=== PATIENT | male | born 1940 | race Caucasian/White ===

== ENCOUNTER 2016-12-21 14:51 | Inpatient (IN) | payer MEDICARE, OTHER ==
[~2016-12-21] VITALS: Ht 175.3 cm; Wt 69.0 kg
[~2016-12-21 14:51] MED LIST: 1-ME1LIQ PO; ASPI81TA82 PO; CELE200C PO; COZA100T PO; FISH1000 PO; HYDR50TA15 PO; MOTR200T PO; PERC5TAB12 PO; TOPR100T15 PO
[2016-12-21 15:29] VITALS: BP 169/80; PULSE 56; RESP 20; TEMP 98.3; O2SAT 96
--- NOTE | 2016-12-21 15:29 | PD ---
HPI Chief Complaint: fall Time Seen by Provider: 15:24 Travel History International Travel<30 days: No Contact w/Intl Traveler<30days: No History of Present Illness HPI 76-year-old male with PMH of hypertension presents to the ED via EMS after mechanical fall. The patient states that he was leaving lunch with a friend, turn to hug her and lost his balance, falling onto his right hip and elbow. He denies hitting his head or loss of consciousness. On presentation he complains of 3/10 right hip pain, worse with attempted range of motion or ambulation. He denies numbness, tingling, weakness of the lower extremities. Denies previous injury to the left hip. He denies headache, dizziness, chest pain, shortness of breath, abdominal pain, nausea, vomiting. PFSH Past Medical History Cancer: Yes (PROSTATE TREATED WITH CRYO) Cardiovascular Problems: Yes Chemotherapy: No Diminished Hearing: No Endocrine: No Gastrointestinal Disorders: No Genitourinary: Yes Hypertension: Yes Immune Disorder: No Musculoskeletal: No Neurologic: Yes (TREMORS NOTED) Psychiatric: No Reproductive: No Respiratory: No Radiation Therapy: No Past Surgical History Abdominal Surgery: Yes (HERNIA X2) Other Surgery: Yes (COLON RESECTION ) Social History Alcohol Use: Yes (2 BEER A DAY) Tobacco Use: Yes (chew) Substance Use: No Allergies-Medications (Allergen,Severity, Reaction): Coded Allergies: No Known Allergies (Verified , 12/21/16) Reported Meds & Prescriptions Reported Meds & Active Scripts Active Reported Aspirin 81 (Aspirin) 81 Mg Tabdr 81 Mg PO DAILY Fish Oil (Avon-3 Fatty Acids) 1,000 Mg Cap 1,000 Mg PO DAILY Celebrex (Celecoxib) 200 Mg Cap 200 Mg PO DAILY Hydralazine (Hydralazine HCl) 50 Mg Tab 50 Mg PO BID Take with a meal Losartan (Losartan Potassium) 100 Mg Tab 100 Mg PO DAILY Metoprolol Tartrate 100 Mg Tab 100 Mg PO DAILY Review of Systems Except as stated in HPI: all other systems reviewed are Neg Physical Exam Narrative GENERAL: Well-nourished, well-developed white male, appearing younger than his stated age, in no acute distress. SKIN: Focused skin assessment warm/dry. HEAD: Normocephalic. EYES: No scleral icterus. No injection or drainage. NECK: Supple, trachea midline. No JVD or lymphadenopathy. CARDIOVASCULAR: Regular rate and rhythm without murmurs, gallops, or rubs. RESPIRATORY: Breath sounds clear and equal bilaterally. No accessory muscle use. GASTROINTESTINAL: Abdomen soft, non-tender, nondistended. Active bowel sounds. MUSCULOSKELETAL: No cyanosis, or edema. 2+ radial pulses bilaterally. No tenderness to palpation or limitations tomorrow him of the right elbow. FOCUSED RIGHT LOWER EXTREMITY EXAM: 2+ DP pulse. Right leg slightly externally rotated and 2-3 cm shorter than the left. Tender to palpation of the anterolateral aspect of the right hip. Patient is able to flex and extend the toes, sensation intact to light touch distally. NEUROLOGICAL: Awake and alert. Cranial nerves II through XII intact. Motor and sensory grossly within normal limits. Five out of 5 muscle strength in all muscle groups. Normal speech. BACK: Nontender without obvious deformity. No CVA tenderness. Data Data Last Documented VS Vital Signs Date Time Temp Pulse Resp B/P Pulse Ox O2 Delivery O2 Flow Rate FiO2 12/21/16 15:30 Room Air 12/21/16 15:29 98.3 56 20 169/80 96 Orders Hip, Uni(Ap&Lat) W Ap Pelvis (12/21/16 15:23) Complete Blood Count With Diff (12/21/16 15:55) Comprehensive Metabolic Panel (12/21/16 15:55) Urinalysis - C+S If Indicated (12/21/16 15:55) Urinary Catheter Insert/Apply (12/21/16 15:55) Coag Profile (12/21/16 15:55) Type And Screen (12/21/16 15:55) Chest, Single Ap (12/21/16 ) Electrocardiogram (12/21/16 15:55) ^ Insert Iv (12/21/16 15:55) NPO (12/21/16 16:04) Consult Orthopedic (12/21/16 ) Admit Order (Ed Use Only) (12/21/16 16:27) MDM Medical Decision Making Medical Screen Exam Complete: Yes Emergency Medical Condition: Yes Differential Diagnosis Contusion versus femoral neck fracture versus dislocation versus other Narrative Course 76-year-old male with PMH of hypertension presents to the ED via EMS after mechanical fall. The patient states that he was leaving lunch with a friend, turn to hug her and lost his balance, falling onto his right hip and elbow. He denies hitting his head or loss of consciousness. On presentation he complains of 3/10 right hip pain, worse with attempted range of motion or ambulation. Vitals reviewed. Physical exam reveals a white male, appearing her than his stated age, in no acute distress. Focused right lower extremity exam reveals a 2+ DP pulse. Right leg slightly externally rotated and 2-3 cm shorter than the left. Tender to palpation of the anterolateral aspect of the right hip. Patient is able to flex and extend the toes, sensation intact to light touch distally. X-rays reveal a femoral neck fracture. I discussed the results of the x-ray and need for surgical intervention with the patient. Patient was ordered nothing by mouth, CBC, CMP, UA, type and screen, CXR, EKG ordered. Spoke with Dr. Salazar who plans surgery tonight. Call placed to [facility]. Dr. Valdovinos spoke with Dr. Gamboa who agrees to accept the patient to the medical service. Please see ortho and medicine notes for disposition. Diagnosis Primary Impression: Fracture of femoral neck, right, closed Qualified Code: S72.001A - Closed fracture of neck of right femur, initial encounter Jovita Richey Dec 21, 2016 15:29
--- NOTE | 2016-12-21 15:56 | RADRPT ---
EXAM DATE/TIME: 12/21/2016 15:39 [facility] COMPARISON: No previous studies available for comparison. INDICATIONS : Right hip pain after fall. MEDICAL HISTORY : None. SURGICAL HISTORY : None. ENCOUNTER: Initial ACUITY: 1 day PAIN SCORE: 2/10 LOCATION: Right anterior hip. FINDINGS: Diffuse decreased bone density. The femoral and iliac artery calcifications are noted. There is a mil dly displaced fracture through the right subcapital femoral neck. Penile implant device noted. CONCLUSION: Right proximal femur fracture. Tom Colunga MD on December 21, 2016 at 15:54 Board Certified Radiologist. This report was verified electronically.
[2016-12-21] MEDS ORDERED: LOSA100T PO (16:00)
[2016-12-21] MEDS ORDERED: HYDR50TA15 PO (16:00)
[2016-12-21] MEDS ORDERED: FISH1000 PO (16:00)
[2016-12-21] MEDS ORDERED: METO100T PO (16:00)
[2016-12-21] MEDS ORDERED: CELE200C PO (16:00)
[2016-12-21] MEDS ORDERED: ASPI-110 PO (16:00)
--- NOTE | 2016-12-21 16:19 | RADRPT ---
EXAM DATE/TIME: 12/21/2016 16:08 [facility] COMPARISON: CHEST SINGLE AP, November 03, 2012, 21:52. INDICATIONS : Fell MEDICAL HISTORY : None. SURGICAL HISTORY : None. ENCOUNTER: Initial ACUITY: 1 day PAIN SCORE: 0/10 LOCATION: Bilateral chest FINDINGS: A single view of the chest demonstrates the lungs to be symmetrically aerated without evidence of mas s, infiltrate or effusion. The cardiomediastinal contours are unremarkable. Osseous structures are intact. CONCLUSION: No acute disease. Francisco Gonzalez MD on December 21, 2016 at 16:17 Board Certified Radiologist. This report was verified electronically.
[2016-12-21] MEDS ORDERED: ONDANSETRON HCL 4 MG/2 ML VIAL IVP PRN (16:30)
[2016-12-21] MEDS ORDERED: ACETAMINOPHEN 325 MG TAB PO PRN (16:30)
[2016-12-21] MEDS ORDERED: SODIUM CHLORIDE 0.9% FLUSH 10 ML FLUSH IV FLUSH PRN (16:30)
[2016-12-21] MEDS ORDERED: NALOXONE HCL 0.4 MG/ML AMP IV PRN (16:30)
[2016-12-21 16:40] LABS: AUTOMATED NEUTROPHIL # 4.9 TH/MM3 (1.8-7.7); BASOPHIL # 0.1 TH/MM3 (0-0.2); BASOPHIL % 0.9 % (0.0-2.0); EOSINOPHIL % 0.5 % (0.0-4.0); HEMATOCRIT 41.1 % (39.0-51.0); HEMO FLAGS DIFF FINAL; LYMPH % 29.3 % (9.0-44.0); LYMPHOCYTE # 2.3 TH/MM3 (1.0-4.8); MEAN CELL VOLUME 89.8 FL (80.0-100.0); MEAN CORPUSCULAR HEMOGLOBIN 30.8 PG (27.0-34.0); MEAN CORPUSCULAR HGB CONC 34.2 % (32.0-36.0); MONO % 7.2 % (0.0-8.0); NEUT % 62.1 % (16.0-70.0); PLATELET COUNT 227 TH/MM3 (150-450); RED BLOOD COUNT 4.57 MIL/MM3 (4.50-5.90); RED CELL DISTRIBUTION WIDTH 13.4 % (11.6-17.2); WHITE BLOOD COUNT 7.8 TH/MM3 (4.0-11.0)
[2016-12-21] MEDS ORDERED: AMLO10TA2 PO (16:40)
[2016-12-21 16:44] LABS: BLOOD, URINE NEG (NEG); GLUCOSE,URINE NEG (NEG); HYALINE CAST, URINE 2 /lpf (RARE); KETONE, URINE NEG (NEG); NITRITE,URINE NEG (NEG); PH, URINE 6.5 (5.0-8.5); SQUAMOUS EPITHELIAL CELL URINE <1 /hpf (0-5); URINE COLOR LIGHT-YELLOW (YELLW/STRAW)
[2016-12-21 16:46] LABS: COMMENT (UR) CATH-CULT NOT IND; CULTURE IF INDICATED CATH CULTURE NOT IND
[2016-12-21 16:49] LABS: APTT (PATIENT) 28.5 SEC (24.3-30.1); PROTHROMBIN TIME - PATIENT 10.8 SEC (9.8-11.6)
[2016-12-21 17:04] LABS: ALKALINE PHOSPHATASE 46 U/L (45-117); ALT (GPT) 26 U/L (12-78); ANION GAP 10 MEQ/L (5-15); AST (GOT) 36 U/L (15-37); BICARBONATE 22.9 MEQ/L (21.0-32.0); BLOOD UREA NITROGEN 8 MG/DL (7-18); CHLORIDE 94 MEQ/L (98-107); GLOMERULAR FILTRATION RATE 89 ML/MIN (>89); SODIUM (NA) 127 MEQ/L (136-145)
[2016-12-21 17:06] LABS: POTASSIUM 4.8 MEQ/L (3.5-5.1)
[2016-12-21] MEDS: cloNIDine HCL 0.1 MG TAB PO PRN (17:17)
[2016-12-21] MEDS: SODIUM CHLOR 0.9% 1000 ML INJ 1,000 ML IV SCH (17:19)
[2016-12-21 18:16] VITALS: BP 170/79; PULSE 61; RESP 20; O2SAT 98
[2016-12-21] MEDS: ENALAPRILAT 1.25 MG/ML VIAL IV PRN (18:54)
--- NOTE | 2016-12-21 19:00 | MH ---
cc: COLE DREW MD DATE OF ADMISSION 12/21/2016 DATE OF 1940 CHIEF COMPLAINT Fall with injury, right hip fracture. TRAVEL IN THE LAST 30 DAYS None. HISTORY OF THE PRESENT ILLNESS This is a pleasant 76-year-old white male who has been in his usual state of health up until today around lunch time. The patient states that he met a friend, a close friend of his 's and went to lunch with her at the [employer]. After finishing his lunch he turned to hug her, lost his balance and both he and the female fell to the ground. The patient was unable to get up and felt extreme pain in his right hip. He also had pain in his right elbow. He denies any syncopal episode, denies any trauma to his head or loss of consciousness. The patient was brought to the emergency room for further evaluation. Currently the patient states that he has not been sick in any kind of way over the past few weeks. He denies any cough. No fever. No shortness of breath. No chest pain. No nausea or vomiting, diarrhea or constipation. No headaches. No abdominal pain. The patient currently is resting on the stretcher. He is alert, oriented and a good historian. PAST MEDICAL HISTORY 1. Prostate cancer. 2. Cardiovascular disease. 3. Hypertension. 4. Neurologic tremors. 5. Abdominal hernia. PAST SURGICAL HISTORY 1. Colon resection. 2. Abdominal hernia x2. 3. Cryosurgery. ALLERGIES No known. MEDICATIONS Reviewed: 1. Aspirin. 2. Fish oil. 3. Celebrex. 4. Hydralazine. 5. Losartan. 6. Metoprolol. 7. The patient added amlodipine. SOCIAL HISTORY The patient is . Currently lives alone with his dog. Positive for chewing tobacco. Positive for alcohol intake usually two to three beers a day and sometimes more around football games. No illicit drugs. REVIEW OF SYSTEMS A 12-point review was done, positives are noted in the HPI which include pain in the right hip, pain in the right elbow, tobacco use, alcohol use. Hypertension. Other systems negative or unremarkable. The patient states that his bowels moved this a.m. and he is on a normal regimen of a daily a.m. PHYSICAL EXAMINATION VITAL SIGNS: Temperature 98.3, pulse 56, respiratory rate 20, blood pressure 169/80. Pulse oximetry 96% which is O2 saturation. Currently on room air. GENERAL: Thin, but well-nourished white male looks younger than his stated age. Resting in the bed. Alert and oriented, cooperative. HEENT: Atraumatic, normocephalic. Pupils equal, round, reactive to light and accommodation. Mucous membranes are pink and moist. He has no scleral icterus. No exudate. NECK: Supple. Trachea is midline. CARDIOVASCULAR: S1-S2. Regular rate and rhythm. Bradycardic, 56. Heart sounds S1-S2. No audible murmur, rub or gallop. LUNGS: Sounds essentially clear anteriorly and posteriorly with no wheezes, rhonchi or rales. ABDOMEN: Soft. Flat. Nontender. Nondistended. Active bowel sounds in all four quadrants. MUSCULOSKELETAL: He can move his upper extremities with purpose. He does have some guarding to the right elbow. I deferred any movement to the right hip or right lower leg. Left lower leg can overcome resistance. NEUROLOGIC: He is alert, oriented. Speech is clear. PSYCHIATRIC: Appropriate mood and affect. GENITOURINARY: Vu catheter inserted with clear, yellow urine being obtained in the Vu bag. LABORATORY DATA Diagnostic data, urine is light yellow, clear. PH is 6.5, specific gravity 1.004. Negative for protein, glucose, ketones, occult blood, nitrites, bilirubin, and leukocyte esterase. Urine bilinogen less than 2. No cath culture will be needed. WBC count 7.8, RBC 4.57, hemoglobin 14.1, hematocrit 41.1, platelet count 227. His differential is normal. PT/INR 1.0. Chemistry sodium 127, potassium 4.8, chloride 94, carbon dioxide 22.9, anion gap 10, BUN 8, creatinine 0.84, GFR 89, random glucose 105. Calcium 8.9. Bilirubin 1.0. AST 36, ALT 26a, alkaline phosphatase 46. Total protein 7.7. Albumin 3.9. IMAGING Imaging studies of the hip and pelvis, right proximal hip fracture. A chest x-ray no acute disease. ASSESSMENT/PLAN 1. Right total hip fracture status post fall. 2. Hypertension. 3. Tobacco use and dependence. 4. Ethyl alcohol use and dependence. 5. Hyponatremia. 6. Bradycardia. Our plan is to admit inpatient status. In the emergency room the patient had labs drawn, was placed n.p.o. Orthopedic consult was done for their expert opinion. The patient was given pain management meds and started on normal saline IV fluids for gentle hydration. The patient has also got Vasotec IV q.6h as needed for any elevation of his blood pressure. He has also got p.o. Catapres given to manage his blood pressure. His systolic was in the high 180s at one point during his time in the ER. Medications have been reconciled. The patient's bradycardia will be monitored. The patient is on beta blockers but denies any dizziness or any symptoms when standing or ambulating. The patient will be remained on bed rest. Diet currently is n.p.o. Dr. Salazar orthopedic surgeon has been consulted and according to my records his plan is to do a surgical repair tonight. His orthopedic postoperative care and pain management will be managed per ortho. The patient will maintain his IV fluids for the treatment of his sodium and through the surgical procedure. We will give Pepcid for peptic ulcer disease prophylaxis. Sequential compression devices for DVT prophylaxis since we are in the preop phase. We will follow. Dictated by: AUGUSTA Duran MD MAHESH Fernando/CHLOE /5:53 PM /6:20 PM
[2016-12-21 19:06] VITALS: BP 154/72; PULSE 58; RESP 20; O2SAT 98
[2016-12-21] MEDS: MORPHINE SULFATE 4 MG/ML INJ IV PUSH PRN ×2 (19:06→22:34)
[2016-12-21 20:25] VITALS: BP 176/76; PULSE 63; RESP 19; TEMP 96.8; O2SAT 96
[2016-12-21] MEDS: SODIUM CHLORIDE 0.9% FLUSH 10 ML FLUSH IV FLUSH SCH (20:40)
[2016-12-21] MEDS: FAMOTIDINE 20 MG TAB PO SCH (20:40)
[2016-12-21] MEDS: hydrALAZINE HCL 50 MG TAB PO SCH (20:40)
[2016-12-21] MEDS ORDERED: POVIDONE IODINE 5% (ANTISEPSIS KIT) 4 APPLICATIONS EACH NARE PRN (20:45)
[2016-12-21] MEDS ORDERED: METOPROLOL TARTRATE 25 MG TAB PO PRN (20:45)
[2016-12-21] MEDS ORDERED: LACTATED RINGER'S 1000 ML IV PRN (20:45)
[2016-12-21] MEDS ORDERED: SODIUM CHLORID 0.9% 500 ML IV PRN (20:45)
[2016-12-21] MEDS ORDERED: CHLORHEXIDINE GLUCONATE 2 % 1 PACK (2 CLOTHS) TOPICAL PRN (20:45)
[2016-12-22 00:01] VITALS: BP 135/61; PULSE 57; RESP 17; TEMP 96.1; O2SAT 98
[2016-12-22] MEDS: SODIUM CHLOR 0.9% 1000 ML INJ 1,000 ML IV SCH ×3 (02:30→22:36)
[2016-12-22 04:01] VITALS: BP 164/79; PULSE 59; RESP 17; TEMP 96.8; O2SAT 97
[2016-12-22] MEDS: MORPHINE SULFATE 4 MG/ML INJ IV PUSH PRN (05:41)
--- NOTE | 2016-12-22 07:10 | PD.ORT.PN ---
Subjective Subjective Remarks Fall when leaving local restaurant. Pain to right hip and was unable to ambulate. Previous weakness to lower extremity due to sodium levels. States he drinks 2-3 beers 3-4 times week. Objective Vitals Vital Signs Date Time Temp Pulse Resp B/P Pulse Ox O2 Delivery O2 Flow Rate FiO2 12/22/16 04:01 96.8 59 17 164/79 97 12/22/16 00:01 96.1 57 17 135/61 98 12/21/16 20:25 96.8 63 19 176/76 96 12/21/16 19:06 58 20 154/72 98 Room Air 12/21/16 18:16 61 20 170/79 98 Room Air 12/21/16 15:30 Room Air 12/21/16 15:29 98.3 56 20 169/80 96 I/O 12/21/16 12/21/16 12/21/16 12/22/16 12/22/16 12/22/16 07:00 15:00 23:00 07:00 15:00 23:00 Intake Total 0 ml 0 ml Output Total 2800 ml 300 ml Balance -2800 ml -300 ml Intake Oral 0 ml 0 ml Output Urine Total 2800 ml 300 ml # Bowel Movements 0 0 Result Diagram: 12/21/16 1600 12/21/16 1600 Other Results Laboratory Tests Test 12/21/16 16:00 Prothrombin Time 10.8 SEC (9.8-11.6) Prothromb Time International 1.0 RATIO Ratio Imaging Last 24 hours Impressions Hip and Pelvis X-Ray 12/21/16 1523 Signed Impressions: Service Date/Time: Wednesday, December 21, 2016 15:39 - CONCLUSION: Right proximal femur fracture. Tom Colunga MD Objective Remarks Bilateral upper extremities: Full range of motion neurovascularly intact Left lower extremity: Full range of motion and neurovascularly intact Right lower extremity: Pain to palpation and movement of hip. No pain with knee or ankle motion. Intact sensation distally with good capillary refills Assessment & Plan Assessment and Plan Right femoral neck fracture Nothing by mouth Bed rest Surgery today for right hip hemiarthroplasty with possible total hip arthroplasty by Dr. Pimentel Sign consents Surya Hernandez Jr. Dec 22, 2016 07:09
[2016-12-22 08:00] VITALS: BP 157/70; PULSE 55; RESP 18; TEMP 96.8; O2SAT 97
[2016-12-22 08:06] LABS: AUTOMATED NEUTROPHIL # 7.9 TH/MM3 (1.8-7.7); BASOPHIL % 0.5 % (0.0-2.0); EOSINOPHIL % 0.1 % (0.0-4.0); HEMATOCRIT 40.7 % (39.0-51.0); HEMO FLAGS DIFF FINAL; LYMPH % 15.9 % (9.0-44.0); LYMPHOCYTE # 1.6 TH/MM3 (1.0-4.8); MEAN CELL VOLUME 91.2 FL (80.0-100.0); MEAN CORPUSCULAR HEMOGLOBIN 31.4 PG (27.0-34.0); MEAN CORPUSCULAR HGB CONC 34.5 % (32.0-36.0); NEUT % 77.5 % (16.0-70.0); PLATELET COUNT 261 TH/MM3 (150-450); RED BLOOD COUNT 4.47 MIL/MM3 (4.50-5.90); WHITE BLOOD COUNT 10.2 TH/MM3 (4.0-11.0)
[2016-12-22 08:26] LABS: BICARBONATE 21.4 MEQ/L (21.0-32.0); POTASSIUM 3.9 MEQ/L (3.5-5.1)
[2016-12-22] MEDS: METOPROLOL TARTRATE 100 MG TAB PO SCH (08:33)
[2016-12-22] MEDS: hydrALAZINE HCL 50 MG TAB PO SCH ×2 (08:33→19:20)
[2016-12-22] MEDS: LOSARTAN 50 MG TAB PO SCH (08:33)
[2016-12-22] MEDS: SODIUM CHLORIDE 0.9% FLUSH 10 ML FLUSH IV FLUSH SCH ×2 (08:34→19:21)
[2016-12-22] MEDS: FAMOTIDINE 20 MG TAB PO SCH ×2 (08:36→19:20)
[2016-12-22] MEDS ORDERED: NON-FORMULARY DRUG (Omega-3 Fatty Acids (Fish Oil) 1,000 MG) PO SCH (09:00)
--- NOTE | 2016-12-22 10:43 | HHI.PR ---
Subjective Remarks Resting in bed Nothing by mouth Alert cooperative, mild anxiety (Maribeth Espinoza) Objective Objective Results - Vital Signs Date Time Temp Pulse Resp B/P Pulse Ox O2 Delivery O2 Flow Rate FiO2 12/22/16 08:00 96.8 55 18 157/70 97 12/22/16 04:01 96.8 59 17 164/79 97 12/22/16 00:01 96.1 57 17 135/61 98 12/21/16 20:25 96.8 63 19 176/76 96 12/21/16 19:06 58 20 154/72 98 Room Air 12/21/16 18:16 61 20 170/79 98 Room Air 12/21/16 15:30 Room Air 12/21/16 15:29 98.3 56 20 169/80 96 I/O 12/21/16 12/21/16 12/21/16 12/22/16 12/22/16 12/22/16 07:00 15:00 23:00 07:00 15:00 23:00 Intake Total 0 ml 0 ml Output Total 2800 ml 300 ml Balance -2800 ml -300 ml Intake Oral 0 ml 0 ml Output Urine Total 2800 ml 300 ml # Bowel Movements 0 0 (Maribeth Espinoza) Result Diagram: 12/22/16 0711 12/22/16 0711 ROS General: Weakness (lower extremities especially the right side), Other (10 point ROS done positives noted in history of present illness otherwise negative or unremarkable systems) GI: Other (nausea mild with pain meds) Neuro/MS: Other (right hip and leg pain, fracture, plan for surgical procedure today, hip replacement) (Maribeth Espinoza) Physical Exam Physical Exam PHYSICAL EXAMINATION GENERAL: This is a well-developed, well-nourished male who appears to be in no acute distress resting in the bed He is alert and awake HEAD: Normocephalic without any lesion or mass noted. Facial features appear symmetric. OROPHARYNGEAL: Oropharynx without erythema or edema. NECK: Supple. No nuchal rigidity or lymphadenopathy. Trachea midline without deviation. CARDIAC: Regular rhythm, regular rate, S1 and S2 are heard. LUNGS: Clear to auscultation bilaterally. ABDOMEN: Soft, nontender, no organomegaly or masses. Bowel sounds are heard in all four quadrants. No rebound. No guarding. EXTREMITIES: No edema. Pulses equal bilateral. New fracture right hip, mildly rotated right foot NEUROLOGICAL: Patient mood and affect appropriate. No focal deficit SKIN:Warm and moist Objective Remarks I'm getting my hip fixed today (Maribeth Espinoza) A/P Assessment and Plan 1. Right total hip fracture status post fall. 2. Hypertension. 3. Tobacco use and dependence. 4. Ethyl alcohol use and dependence. 5. Hyponatremia. 6. Bradycardia. Patient is currently nothing by mouth. Plan for hip replacement to be done today instead of just repair per ortho Postop care and pain management per Ortho Hypertension, medications medical management controlled Tobacco and alcohol dependence, will monitor any signs of increased anxiety or restlessness. Currently patient is alert oriented, no jitters noted Hyponatremia mild patient is receiving gentle hydration Vital signs reviewed, patient is afebrile, heart rate in the 50s, no dizziness asymptomatic, with his medications this seems to be his norm Will check labs in the morning, the [facility] hospitalist will monitor medical management PUD prophylaxis DVT prophylaxis Discussed With: Nurse, Family (patient), Other (, seen on her behalf) ( Maribeth Espinoza) Assessment and Plan patient seen and examined NPO awaiting surgery pain controlled add thiamine , folic acid, prn Ativan (has h/o alcohol consumption) monitor sodium, slowly improving labs in am discussed with patient discussed with Maribeth DERAS (Jayla Davies MD) Maribeth Espinoza Dec 22, 2016 10:43 Jayla Davies MD Dec 22, 2016 13:40
--- NOTE | 2016-12-22 11:45 | EKG ---
Date Performed: 12/21/2016 Time Performed: 16:11:26 PTAGE: 76 years EKG: Sinus rhythm POSSIBLE RIGHT VENTRICULAR CONDUCTION DELAY INFERIOR MYOCARDIAL INFARCTION ABNORMAL ECG PREVIOUS TRACING : 12/21/2016 16.09 DOCTOR: Awais Quintana Interpretating Date/Time 12/24/2016 07:40:42
[2016-12-22] MEDS: cloNIDine HCL 0.1 MG TAB PO PRN ×2 (11:52→18:29)
[2016-12-22 12:00] VITALS: BP 171/70; PULSE 63; RESP 18; TEMP 96.9; O2SAT 98
[2016-12-22] MEDS ORDERED: LORazepam 0.5 MG TAB PO PRN (13:00)
[2016-12-22] MEDS ORDERED: PROPOFOL 200 MG/20 ML AMP IV ONE (14:46)
[2016-12-22] MEDS ORDERED: ePHEDrine/NS 25 MG/5 ML SYR IV ONE (14:47)
[2016-12-22] MEDS ORDERED: NEOSTIGMINE 3 MG/3 ML SYR IV ONE (14:47)
[2016-12-22] MEDS ORDERED: ONDANSETRON HCL 4 MG/2 ML VIAL IV PUSH ONE (14:47)
[2016-12-22] MEDS: THIAMINE INJ 100 MG in SODIUM CHLORIDE 0.9% INJ 100 ML IV SCH (15:00)
[2016-12-22] MEDS ORDERED: GENTAMICIN SULFATE 80 MG/2 ML VIAL ONE (15:10)
[2016-12-22] MEDS ORDERED: VANCOMYCIN HCL 1000 MG VIAL ONE ×2 (15:10→16:23)
--- NOTE | 2016-12-22 15:40 | PD.OP ---
cc: Jacek Chester MD Operative Report Date of Surgery: Dec 22, 2016 Preoperative Diagnosis: Displaced right femoral neck fracture Postoperative Diagnosis: Procedure: Right hip hemiarthroplasty Anesthesia: Gen. Surgeon: Jacek Chester Cover Maker(s): Dmitry Radford PA-C The surgical procedure was assisted by my physician education assistant. My P.A. presence was necessary throughout this case for the manipulation and positioning of the surgical extremity. My P.A. was assisting me throughout the duration of this procedure. The skill set of a physician education assistant was medically necessary to complete this procedure. During the surgical case the surgical garment inspector was working at the back table and the physician education assistant was directly assisting me. Operation and Findings: PLAN OF ACTIVITY Weight bear as tolerated. IMPLANTS USED DePuy Corail size [14] stem with size [52] bipolar head and [+1] neck. DRAIN: 7 mm James-Carter drain DETAILS OF PROCEDURE This patient was brought into the operating room and placed on the OR table. The patient was given anesthesia. The patient received IV antibiotics. The patient was then placed in lateral decubitus position. The hip and leg were prepped with alcohol, followed by Hibiclens and draped in a usual sterile fashion. Clean air was used for this procedure. Time out procedure was performed. The procedure began with a 5 inch incision over the posterolateral hip. The subcutaneous tissue was dissected with the Bovie. The iliotibial band were split in line with fibers. The Charnley retractor was placed. The piriformis and external rotators were released from the femur and tagged with a #1 Vicryl suture. The capsule is now incised and tagged with #1 Vicryl. The femoral neck fracture was now visualized. A corkscrew was now used to remove the femoral head. The femoral head was sized and measured. Soft tissue was now protected. The hip skid was placed underneath the femoral neck. An oscillating saw was used to make a femoral neck cut. At this point attention was turned to preparation of the proximal femur. A box osteotome was used to remove the lateral cortex of the femoral neck. The T- handle reamer was used to open the femoral canal. Next, the canal was broached. A lateralizing reamer was used to help lateralize the prosthesis. At this point a trial head and neck were placed. The hip was reduced. The patient was found to have excellent stability with good range of motion. Trial components were removed. Soft tissue and bone were thoroughly irrigated. A Corail stem was now opened. The stem was now impacted into the proximal femur. Care was taken to keep appropriate anteversion. The head and neck were now impacted onto the stem. The hip was again reduced. The hip was found to have good range of motion and good stability. Leg lengths were clinically equal. The wound was thoroughly irrigated. The capsule, piriformis and iliotibial band were closed with #1 Vicryl. Subcutaneous tissue was closed with 3-0 Vicryl. The skin was closed with britta. A sterile dressing was applied with Primapore. The patient was placed into a knee immobilizer. The patient was awakened and transferred to the recovery room in stable condition. Needle and sponge counts were correct. Jacek Chester MD Dec 22, 2016 15:40
[2016-12-22] MEDS ORDERED: ERGOCALCIFEROL (VIT D2) 50,000 UNIT CAP PO ONE (15:45)
[2016-12-22] MEDS ORDERED: MORPHINE SULFATE 4 MG/ML INJ IV PUSH PRN (15:45)
[2016-12-22] MEDS ORDERED: Post-op Orders (for Pharmacy) MISC XX ONE (15:45)
[2016-12-22] MEDS ORDERED: ACETAMINOPHEN/HYDROcodone 325 MG/7.5 MG TAB PO PRN (15:45)
[2016-12-22] MEDS ORDERED: SODIUM CHLORIDE 0.9% FLUSH 5 ML FLUSH IVF PRN (15:45)
--- NOTE | 2016-12-22 16:55 | MB ---
cc: JACEK KWONG DATE OF CONSULTATION: 12/22/2016 REASON FOR CONSULTATION: Right femoral neck fracture. CONSULTING PHYSICIAN: Dr. Gamboa. HISTORY OF PRESENT ILLNESS: Farhat is a 76 year-old male who had a fall. He met with a friend at the [employer] for lunch. As he was finishing lunch he lost his balance and fell. Both he and his friend fell to the ground. He was unable to get up because of right hip pain. He denies any dizziness, syncope or loss of consciousness. He denies hitting his head. He presented emergency room x-rays revealed a displaced right femoral neck fracture. He is currently awake and alert on the orthopedic floor. He does drink alcohol several days per week. He has history of hyponatremia. Pain is worse with movement is improved with rest. PAST MEDICAL HISTORY/ILLNESSES Prostate cancer. Cardiovascular disease Hypertension PAST SURGICAL HISTORY: Colon resection Abdominal hernia. Cryosurgery. ALLERGIES NONE. MEDICATIONS 1. Aspirin. 2. Fish oil 3. Celebrex 4. Hydralazine 5. Losartan 6. Metoprolol 7. Amlodipine. SOCIAL HISTORY The patient is a . Lives at home with his dog. He does use chewing tobacco. He drinks two to three beers per day most days. He denies drug use. FAMILY HISTORY Noncontributory. REVIEW OF SYSTEMS The patient denies headache, visual changes, neck pain, chest pain, shortness of breath, abdominal pain, nausea or recent weight loss or numbness amp extremities complains of right hip pain. Pain is worse with movement. PHYSICAL EXAMINATION IN GENERAL: The patient is a thin 76-year male in no acute distress. He is awake and alert. He is alert and x3. VITAL SIGNS: Temperature 96.9, pulse 63, respirations 18, blood pressure 171/70, O2 sat 90% on room air. HEAD, EYES, EARS, NOSE, AND THROAT: Head: The patient is normocephalic. Pupils are equal. NECK: Soft, nontender. Trachea is midline. ABDOMEN: Soft, nontender, nondistended. EXTREMITIES: The examination of right and left upper extremities reveals no significant pain with shoulder, elbow or wrist motion. He has intact sensation in all fingers. Cap refill fingers. Radial pulses are palpable. Sensation is intact in all fingers. Examination of left leg reveals no pain with hip, knee or ankle motion. Skin is intact. Dorsalis pedis pulses palpable. Sensation is intact. Examination of right leg reveals pain with any hip motion he has no tenderness around his knee, tibia or ankle. Skin is intact. Dorsalis pedis pulses palpable. Sensation is intact. X-RAYS X-rays of right hip were reviewed x-rays reveal a displaced right femoral neck fracture. IMPRESSION 1. Coronary artery disease 2. Hypertension 3. Possible osteoporosis 4. Displaced right femoral neck fracture. PLAN The option discussed with the patient discussed both the right hip hemiarthroplasty and right total hip arthroplasty. I explained the risks, benefits of each. The risk of the dislocation are significantly higher with total hip arthroplasty. The patient is not an extremely active person. At this point I would recommend the right hip hemiarthroplasty. Risks of surgery including bleeding, infection, injury to his blood vessels, hip dislocation length discrepancy, fracture femur as well as medical complications including blood clot, stroke, heart attack and were discussed. All questions were answered. I will plan on surgery today. A mid-level provider in my office (nurse practitioner or physician glass ribbon machine operator assistant) may see this patient on follow-up visits and continue to implement the objectives of this plan including: Starting or adjusting medications, injections , cast application, orthotics, brace application, physical therapy, radiological studies (including x-ray, MRI, CT, ultrasound, bone scan), vascular studies, neurologic studies, specialist consultation, and proceeding with surgical management, as appropriate. Jacek MD CAITLYN Perea/aramis /3:39 PM /4:48 PM NIXON
[2016-12-22] MEDS ORDERED: DO NOT ADM ANY ANTICOAGULANT DRUGS PRN (17:13)
[2016-12-22] MEDS ORDERED: fentaNYL CITRATE 250 MCG/5 ML AMP ONE (17:24)
[2016-12-22] MEDS ORDERED: ceFAZolin 2 GM PREMIX 50 ML IV SCH (17:30)
[2016-12-22] MEDS ORDERED: *ENALAPRILAT 1.25 MG/ML VIAL PERIprocedural Use ONLY ONE ×2 (17:32→18:04)
--- NOTE | 2016-12-22 19:18 | RADRPT ---
EXAM DATE/TIME: 12/22/2016 18:25 [place] COMPARISON: No previous studies available for comparison. INDICATIONS : Post op right hip. MEDICAL HISTORY : None. SURGICAL HISTORY : None. ENCOUNTER: Initial ACUITY: 1 day PAIN SCORE: Non-responsive. LOCATION: Right hip. FINDINGS: A single AP view of the pelvis was obtained as well as crosstable lateral view of the right hip. This demonstrates the patient is status post right hip arthroplasty. The femoral and acetabular component are intact and in normal alignment. There is an adjacent surgical drain. There is soft tissue swelli ng and postsurgical changes with overlying surgical skin britta. A penile prosthesis is noted. CONCLUSION: That is post right hip arthroplasty. Surya Rangel MD on December 22, 2016 at 19:15 Board Certified Radiologist. This report was verified electronically.
[2016-12-22] MEDS: ceFAZolin 2 GM PREMIX 50 ML IV SCH (19:21)
[2016-12-22] MEDS ORDERED: ceFAZolin 1,000 MG/NS 100 ML IV SCH ×2 (20:00)
[2016-12-22 20:01] VITALS: BP 180/78; PULSE 52; RESP 20; TEMP 96; O2SAT 98
[2016-12-22] MEDS ORDERED: SODIUM CHLORIDE 0.9% FLUSH 5 ML FLUSH IVF SCH (21:00)
[2016-12-22 23:03] VITALS: BP 123/58; PULSE 51; RESP 19; TEMP 96; O2SAT 96
[2016-12-23] VITALS (8 sets, daily range): BP systolic 143–188; BP diastolic 68–84; PULSE 50–67; RESP 16–19; TEMP 96–99.4; O2SAT 95–97
[2016-12-23] MEDS: ceFAZolin 2 GM PREMIX 50 ML IV SCH ×2 (01:41→09:35)
--- NOTE | 2016-12-23 06:55 | PD.ORT.PN ---
Subjective Subjective Remarks POD 1 s/p right hip bipolar hemiarthroplasty doing well. pain controlled. confused. Objective Vitals Vital Signs Date Time Temp Pulse Resp B/P Pulse Ox O2 Delivery O2 Flow Rate FiO2 12/23/16 04:01 96.2 50 19 143/68 95 12/22/16 23:03 96.0 51 19 123/58 96 12/22/16 20:01 96.0 52 20 180/78 98 12/22/16 18:30 52 12 164/80 97 Nasal Cannula 2 12/22/16 18:15 53 12 171/83 98 Nasal Cannula 2 12/22/16 18:00 54 12 165/83 97 Nasal Cannula 2 12/22/16 17:45 57 12 173/88 97 Nasal Cannula 2 12/22/16 17:30 58 12 186/90 97 Nasal Cannula 2 12/22/16 17:16 98.3 91 16 170/77 98 Nasal Cannula 2 12/22/16 12:00 96.9 63 18 171/70 98 12/22/16 08:00 96.8 55 18 157/70 97 I/O 12/22/16 12/22/16 12/22/16 12/23/16 12/23/16 12/23/16 07:00 15:00 23:00 07:00 15:00 23:00 Intake Total 0 ml 1916 ml 1186 ml Output Total 300 ml 300 ml 530 ml 80 ml Balance -300 ml 1616 ml 656 ml -80 ml Intake Oral 0 ml 120 ml IV Total 1916 ml 266 ml Other 800 ml Output Urine Total 300 ml 300 ml 350 ml Drainage Total 30 ml 80 ml Estimated Blood Loss 150 ml # Bowel Movements 0 0 0 Result Diagram: 12/22/16 0711 12/22/16 0711 Imaging Last 24 hours Impressions Hip and Pelvis X-Ray 12/21/16 1523 Signed Impressions: Service Date/Time: Wednesday, December 21, 2016 15:39 - CONCLUSION: Right proximal femur fracture. Tom Colunga MD Objective Remarks RLE: dressings clean and dry.intact. +drain. +knee brace. NVI Assessment & Plan Assessment and Plan 1) Right femoral neck fracture s/p hemiarthroplasty - POD 1 -WBAT -posterior hip precautions -maintain knee brace while in bed -DC drain POD 2 with dressing changes -CM for rehab placement -DVT prophylaxis with lovenox -plan for DC to rehab when arrangement made -f/u with [facility] or [facility] in 2 weeks Dmitry Radford Dec 23, 2016 06:55
[2016-12-23] MEDS ORDERED: ERGO1CAP30 PO (06:57)
[2016-12-23] MEDS ORDERED: CALCTAB19 PO (06:57)
[2016-12-23] MEDS ORDERED: XARE10TA PO (06:57)
[2016-12-23] MEDS ORDERED: HYDR-3288 PO (06:57)
[2016-12-23] MEDS ORDERED: VITA2000 PO (06:57)
[2016-12-23] MEDS ORDERED: WALKER/ADULT/FO1 MIS (06:57)
[2016-12-23 08:15] LABS: AUTOMATED NEUTROPHIL # 5.6 TH/MM3 (1.8-7.7); BASOPHIL % 0.1 % (0.0-2.0); HEMATOCRIT 31.9 % (39.0-51.0); HEMO FLAGS DIFF FINAL; LYMPH % 15.8 % (9.0-44.0); LYMPHOCYTE # 1.2 TH/MM3 (1.0-4.8); MEAN CELL VOLUME 90.2 FL (80.0-100.0); MEAN CORPUSCULAR HEMOGLOBIN 32.4 PG (27.0-34.0); MEAN CORPUSCULAR HGB CONC 35.9 % (32.0-36.0); MONO % 11.7 % (0.0-8.0); NEUT % 72.4 % (16.0-70.0); PLATELET COUNT 220 TH/MM3 (150-450); RED BLOOD COUNT 3.54 MIL/MM3 (4.50-5.90); RED CELL DISTRIBUTION WIDTH 13.4 % (11.6-17.2); WHITE BLOOD COUNT 7.7 TH/MM3 (4.0-11.0)
[2016-12-23 08:35] LABS: BICARBONATE 24.7 MEQ/L (21.0-32.0)
[2016-12-23] MEDS: SODIUM CHLOR 0.9% 1000 ML INJ 1,000 ML IV SCH ×2 (09:36→17:30)
[2016-12-23] MEDS: LOSARTAN 50 MG TAB PO SCH (09:40)
[2016-12-23] MEDS: FOLIC ACID 1 MG TAB PO SCH (09:40)
[2016-12-23] MEDS: CHOLECALCIFEROL (VIT D3) 5000 UNIT CAP PO SCH (09:41)
[2016-12-23] MEDS: SODIUM CHLORIDE 0.9% FLUSH 10 ML FLUSH IV FLUSH SCH ×2 (09:41→20:01)
[2016-12-23] MEDS: hydrALAZINE HCL 50 MG TAB PO SCH ×2 (09:41→20:00)
[2016-12-23] MEDS: METOPROLOL TARTRATE 100 MG TAB PO SCH (09:41)
[2016-12-23] MEDS: FAMOTIDINE 20 MG TAB PO SCH ×2 (09:41→20:00)
--- NOTE | 2016-12-23 11:21 | HHI.PR ---
Subjective Remarks Resting in bed, alert States he slept very well Status post day 1 to left hip replacement Talking on the phone to family Afebrile Objective Objective Results - Vital Signs Date Time Temp Pulse Resp B/P Pulse Ox O2 Delivery O2 Flow Rate FiO2 12/23/16 09:40 63 12/23/16 04:01 96.2 50 19 143/68 95 12/22/16 23:03 96.0 51 19 123/58 96 12/22/16 20:01 96.0 52 20 180/78 98 12/22/16 18:30 52 12 164/80 97 Nasal Cannula 2 12/22/16 18:15 53 12 171/83 98 Nasal Cannula 2 12/22/16 18:00 54 12 165/83 97 Nasal Cannula 2 12/22/16 17:45 57 12 173/88 97 Nasal Cannula 2 12/22/16 17:30 58 12 186/90 97 Nasal Cannula 2 12/22/16 17:16 98.3 91 16 170/77 98 Nasal Cannula 2 12/22/16 12:00 96.9 63 18 171/70 98 I/O 12/22/16 12/22/16 12/22/16 12/23/16 12/23/16 12/23/16 07:00 15:00 23:00 07:00 15:00 23:00 Intake Total 0 ml 1916 ml 1186 ml 120 ml Output Total 300 ml 300 ml 530 ml 280 ml Balance -300 ml 1616 ml 656 ml -160 ml Intake Oral 0 ml 120 ml 120 ml IV Total 1916 ml 266 ml Other 800 ml Output Urine Total 300 ml 300 ml 350 ml 200 ml Drainage Total 30 ml 80 ml Estimated Blood Loss 150 ml # Bowel Movements 0 0 0 0 Result Diagram: 12/23/16 0736 12/23/16 0736 ROS General: Weakness (generalized postop day 1 right hip replacement), Other (10 point ROS done positives noted, bowel regimen no BM yet, systems negative or unremarkable. Physical therapy started today) Neuro/MS: Other (mild anxiety, but glad surgery is completed) Skin: Other (pain management) Physical Exam Physical Exam PHYSICAL EXAMINATION GENERAL: This is a well-developed, well-nourished male who appears to be in no acute distress. He is alert and awake, postop day 1 right hip replacement HEAD: Normocephalic without any lesion or mass noted. Facial features appear symmetric. OROPHARYNGEAL: Oropharynx without erythema or edema. NECK: Supple. No nuchal rigidity or lymphadenopathy. Trachea midline without deviation. CARDIAC: Regular rhythm, regular rate, S1 and S2 are heard. Murmur soft no gallops or rubs. LUNGS: Clear to auscultation bilaterally. Eupneic respirations at rest ABDOMEN: Soft, nontender, no organomegaly or masses. Bowel sounds are heard in all four quadrants. No rebound. No guarding. EXTREMITIES: no edema. Pulses equal bilateral. NEUROLOGICAL: Patient mood and affect appropriate. No focal deficit SKIN:Warm and moist Objective Remarks I Slept really well last night A/P Assessment and Plan 1. Right total hip fracture status post fall. 2. Hypertension. 3. Tobacco use and dependence. 4. Ethyl alcohol use and dependence. 5. Hyponatremia. 6. Bradycardia. Status post right hip replacement, day 1 dressing is clean dry and intact, no drainage noted Postop care and pain management per Ortho Hypertension, medications medical management controlled Tobacco and alcohol dependence, will monitor any signs of increased anxiety or restlessness. No acute restlessness noted patient is alert and oriented, monitor for any needs Hyponatremia mild patient is receiving gentle hydration Vital signs reviewed, patient is afebrile, heart rate in the 50s, no dizziness asymptomatic, with his medications this seems to be his norm Labs reviewed no acute leukocytosis or blood loss noted .vitamin D level low . PO Vit. D . encourage by mouth fluids, mild hyponatremia, started on multivitamins, thiamine IV daily Bowel regimen, stool softeners today. Patient states usually has no problems with his bowels moving PUD prophylaxis DVT prophylaxis Discussed With: Nurse, Family (patient), Other (, seen on her behalf) Maribeth Espinoza Dec 23, 2016 11:21
[2016-12-23] MEDS ORDERED: CHOLECALCIFEROL (VIT D3) 1000 UNIT TAB PO SCH (11:30)
[2016-12-23] MEDS: MULTIVITAMIN TAB PO SCH (12:09)
[2016-12-23] MEDS: ENALAPRILAT 1.25 MG/ML VIAL IV PRN (13:28)
[2016-12-23] MEDS: cloNIDine HCL 0.1 MG TAB PO PRN (15:18)
[2016-12-23] MEDS: THIAMINE INJ 100 MG in SODIUM CHLORIDE 0.9% INJ 100 ML IV SCH (15:29)
[2016-12-23] MEDS ORDERED: ENOXAPARIN SODIUM 30 MG/0.3 ML SYRINGE SQ SCH (16:13)
[2016-12-23] MEDS: ACETAMINOPHEN/HYDROcodone 325 MG/7.5 MG TAB PO PRN (17:30)
[2016-12-24 00:02] VITALS: BP 155/60; PULSE 59; RESP 18; TEMP 99.4; O2SAT 94
[2016-12-24] MEDS: SODIUM CHLOR 0.9% 1000 ML INJ 1,000 ML IV SCH (01:55)
[2016-12-24 04:21] VITALS: BP 158/61; PULSE 78; RESP 17; TEMP 98.8; O2SAT 94
--- NOTE | 2016-12-24 06:56 | PD.ORT.PN ---
Subjective Subjective Remarks Resting comfortably with mild confusion Objective Vitals Vital Signs Date Time Temp Pulse Resp B/P Pulse Ox O2 Delivery O2 Flow Rate FiO2 12/24/16 04:21 98.8 78 17 158/61 94 12/24/16 00:02 99.4 59 18 155/60 94 12/23/16 19:52 99.4 63 16 169/76 96 12/23/16 18:38 21 12/23/16 18:17 67 180/84 12/23/16 16:00 97.0 65 16 185/74 97 12/23/16 15:15 62 180/74 12/23/16 12:00 97.0 64 16 188/79 97 12/23/16 09:40 63 12/23/16 08:00 96.0 55 16 175/72 95 I/O 12/23/16 12/23/16 12/23/16 12/24/16 12/24/16 12/24/16 07:00 15:00 23:00 07:00 15:00 23:00 Intake Total 120 ml 660 ml 240 ml 240 ml Output Total 280 ml 300 ml 100 ml 400 ml Balance -160 ml 360 ml 140 ml -160 ml Intake Oral 120 ml 600 ml 240 ml 240 ml IV Total 60 ml Output Urine Total 200 ml 300 ml 400 ml Drainage Total 80 ml 100 ml Bladder Scan Volume Amount 361 ml # Voids 1 0 # Bowel Movements 0 0 0 0 Result Diagram: 12/23/1636 12/23/16 0736 Imaging Last 24 hours Impressions Hip and Pelvis X-Ray 12/21/16 1523 Signed Impressions: Service Date/Time: Wednesday, December 21, 2016 15:39 - CONCLUSION: Right proximal femur fracture. Tom Colunga MD Objective Remarks RLE: dressings clean and dry.intact. +drain. +knee brace. NVI Assessment & Plan Assessment and Plan 1) Right femoral neck fracture s/p hemiarthroplasty - POD 2 -WBAT -posterior hip precautions -maintain knee brace while in bed -Daily dressing changes -CM for rehab placement -DVT prophylaxis with lovenox -plan for DC to rehab when arrangement made -f/u with [facility] or [facility] in 2 weeks Surya Hernandez Jr. Dec 24, 2016 06:56
[2016-12-24 08:00] VITALS: BP 149/66; PULSE 94; RESP 20; TEMP 99.1; O2SAT 94
[2016-12-24] MEDS: MULTIVITAMIN TAB PO SCH (08:46)
[2016-12-24] MEDS: FOLIC ACID 1 MG TAB PO SCH (08:46)
[2016-12-24] MEDS: LOSARTAN 50 MG TAB PO SCH (08:46)
[2016-12-24] MEDS: METOPROLOL TARTRATE 100 MG TAB PO SCH (08:46)
[2016-12-24] MEDS: FAMOTIDINE 20 MG TAB PO SCH (08:47)
[2016-12-24] MEDS: CHOLECALCIFEROL (VIT D3) 5000 UNIT CAP PO SCH (08:47)
[2016-12-24] MEDS: SODIUM CHLORIDE 0.9% FLUSH 10 ML FLUSH IV FLUSH SCH (08:47)
[2016-12-24] MEDS: hydrALAZINE HCL 50 MG TAB PO SCH (08:47)
[2016-12-24] MEDS: ACETAMINOPHEN/HYDROcodone 325 MG/7.5 MG TAB PO PRN (08:52)
--- NOTE | 2016-12-24 11:05 | HHI.PR ---
Subjective Subjective Remarks Minimal pain No chest pain No shortness of breath No fever Eating well Had a bowel movement Review of Systems Constitutional Constitutional Remarks 12 point review of systems completed, negative except as noted above Vitals/Results Intake & Output 12/23/16 12/23/16 12/24/16 15:00 23:00 07:00 Intake Total 660 ml 240 ml 240 ml Output Total 300 ml 100 ml 420 ml Balance 360 ml 140 ml -180 ml Intake Oral 600 ml 240 ml 240 ml IV Total 60 ml Output Urine Total 300 ml 400 ml Drainage Total 100 ml 20 ml Bladder Scan Volume Amount 361 ml # Voids 1 0 # Bowel Movements 0 0 0 Vital Signs Vital Signs Date Time Temp Pulse Resp B/P Pulse Ox O2 Delivery O2 Flow Rate FiO2 12/24/16 08:00 99.1 94 20 149/66 94 12/24/16 04:21 98.8 78 17 158/61 94 12/24/16 00:02 99.4 59 18 155/60 94 12/23/16 19:52 99.4 63 16 169/76 96 12/23/16 18:38 21 12/23/16 18:17 67 180/84 12/23/16 16:00 97.0 65 16 185/74 97 12/23/16 15:15 62 180/74 12/23/16 12:00 97.0 64 16 188/79 97 CBC/BMP: 12/23/16 0736 12/23/16 0736 Physical Exam General General Appearance: Well Developed, Well Nourished, No Acute Distress, Comfortable Eyes Eye Exam: Pupils Equal, Pupils Reactive Ears & Nose Ears & Nose Exam: Nasal Mucosa [place] Throat Throat Exam: Oral Mucosa [place] & Moist Neck Neck Exam: Neck Supple, Trachea Midline Pulmonary Resp Exam: Clear Bilaterally Cardiology CV Exam: Regular, Good Perfusion Gastrointestinal/Abdomen GI Exam: Soft, Non-Tender, Bowel Sounds Present, Non-Distended Musculoskeletal MS Remarks Right hip dressing dry and intact Integumentary Skin Exam: Warm, Dry Extremeties Extremities Exam: No Edema, Pedal Pulses Palpable Neurologic Neuro Exam: Alert, Awake, Oriented, Speech Clear, Paraprofessional Education Assistant Equal Psychiatric Psych Exam: Appropriate Responses VTE Prophylaxis VTE Prophylaxis Device: SCDs, TEDs VTE Prophylaxis Meds: Lovenox Assessment/Plan Problem List: (1) Fracture of femoral neck, right, closed (2) Tremor, essential (3) Hypertension (4) Impaired mobility and activities of daily living (5) Vitamin D deficiency (6) ETOH abuse Assessment/Plan Status post right hip hemiarthroplasty, 12/22 Postop care and pain management per Ortho Physical therapy Lovenox for DVT prophylax Hypertension, at times elevated Continue home medication When necessary meds have been ordered Tobacco and alcohol dependence, has been stable will monitor any signs of increased anxiety or restlessness Continue with thiamine Hyponatremia mild Stable Vitamin D deficiency Continue with by mouth vitamin D Case management for discharge planning, has been accepted [facility] are Lovenox for DVT prophylaxis Patient stable for discharge Discharge to [facility] today Follow up with orthopedic in 2 weeks Diet heart healthy Activity per orthopedic orders D/W RN D/W Dr. Aguayo D/W pt This patient was seen by myself and Dr. Aguayo, this note is written on his behalf. Problem Qualifiers (1) Fracture of femoral neck, right, closed: Qualified Code: S72.001A - Closed fracture of neck of right femur, initial encounter (2) Hypertension: Qualified Code: I10 - Essential hypertension Coral Lockwood Dec 24, 2016 11:05
--- NOTE | 2016-12-24 11:05 | HHI.DCPOC ---
Discharge Care Plan Diagnosis: (1) Fracture of femoral neck, right, closed Your Health Problems Are: Difficulty with ADL Goals to Promote Your Health * To prevent worsening of your condition and complications * To maintain your health at the optimal level Directions to Meet Your Goals Take your medications as prescribed Follow your dietary instruction Follow activity as directed Keep your appointments as scheduled Take your immunizations and boosters as scheduled If your symptoms worsen call your PCP, if no PCP go to Urgent Care Center or Emergency Room Smoking is Dangerous to Your Health. Avoid second hand smoke Call the 24-hour hour crisis hotline for domestic abuse at Coral Lockwood [facility] Dec 24, 2016 11:05
[2016-12-24 11:58] VITALS: BP 173/65; PULSE 79; RESP 20; TEMP 97.7; O2SAT 95
--- NOTE | 2016-12-24 15:11 | HHI.DS ---
Discharge Summary Admission Date Dec 21, 2016 at 16:28 Discharge Date: Dec 24, 2016 Admitting Diagnosis R Fem Neck Fx (1) Fracture of femoral neck, right, closed (2) Postoperative anemia due to acute blood loss (3) Tremor, essential (4) Hypertension (5) Vitamin D deficiency (6) ETOH abuse (7) Impaired mobility and activities of daily living (8) Hyponatremia Procedures Status post right hip hemiarthroplasty, 12/22 CBC/BMP: 12/23/16 0736 12/23/16 0736 Significant Findings Laboratory Tests Test 12/21/16 12/22/16 12/23/16 16:00 07:11 07:36 Sodium Level 127 MEQ/L 130 MEQ/L 133 MEQ/L (136-145) (136-145) (136-145) Chloride Level 94 MEQ/L 95 MEQ/L (98-107) (98-107) Red Blood Count 4.47 MIL/MM3 3.54 MIL/MM3 (4.50-5.90) (4.50-5.90) Neutrophils (%) (Auto) 77.5 % 72.4 % (16.0-70.0) (16.0-70.0) Neutrophils # (Auto) 7.9 TH/MM3 (1.8-7.7) Random Glucose 123 MG/DL 129 MG/DL (74-106) (74-106) Calcium Level 8.4 MG/DL 8.2 MG/DL (8.5-10.1) (8.5-10.1) 25-Hydroxy Vitamin D Total 27.3 ng/ML (30-100) Hemoglobin 11.5 GM/DL (13.0-17.0) Hematocrit 31.9 % (39.0-51.0) Monocytes (%) (Auto) 11.7 % (0.0-8.0) Estimat Glomerular Filtration 82 ML/MIN (>89) Rate Imaging Last Impressions Hip and Pelvis X-Ray 12/22/16 1534 Signed Impressions: Service Date/Time: Thursday, December 22, 2016 18:25 - CONCLUSION: That is post right hip arthroplasty. Surya Rangel MD Chest X-Ray 12/21/16 0000 Signed Impressions: Service Date/Time: Wednesday, December 21, 2016 16:08 - CONCLUSION: No acute disease. Francisco Gonzalez MD Hospital Course This is a pleasant 76-year-old white male who had been in his usual state of health up until today around lunch time. The patient stated that he met a a close friend of his 's and went to lunch with her at the [employer]. After finishing his lunch he turned to hug her, lost his balance and both he and the female fell to the ground. The patient was unable to get up and felt extreme pain in his right hip. He also had pain in his right elbow. He denied any syncopal episode, denies any trauma to his head or loss of consciousness. The patient was brought to the emergency room for further evaluation. Was evaluated in the ED, was found with a right femoral neck fracture. Patient was admitted for further evaluation for: (1) Fracture of femoral neck, right, closed (2) Tremor, essential (3) Hypertension (4) Impaired mobility and activities of daily living (5) Vitamin D deficiency (6) ETOH abuse (7) Hyponatremia During the course of the hospitalization, the following took place: Patient was admitted, orthopedic was consulted Pain management was provided Surgery was recommended by orthopedic Status post right hip hemiarthroplasty, 12/22 Postop orders instituted consisting of pain management, wound care, physical therapy, appropriate DVT prophylaxis Hypertension, at times blood pressure elevated Continued home medication When necessary meds were ordered Tobacco and alcohol dependence, remained stable monitored for signs of increased anxiety or restlessness Put on thiamine Was noted with Hyponatremia mild Hydrated Na improved IVF dc Vitamin D deficiency noted Started on by mouth vitamin D Case management consult for discharge planning, was accepted at [facility] Patient was stable for discharge Cleared by orthopedic surgeon Discharged to [facility] in stable condition Follow up with orthopedic in 2 weeks Diet heart healthy Activity per orthopedic orders Pt Condition on Discharge: Stable Discharge Disposition: Rehab Inpatient Discharge Instructions DIET: Follow Instructions for: Heart Healthy Diet Activities you can perform: Weight Bearing as Marcia Follow up Referrals: Orthopedics - 01/06/17 @ [facility] with Jacek Pimentel MD New Medications: Calcium Carbonate-Vitamin D (Calcium 600+D 200) 600-200 Mg-Unit Tab 1 TAB PO BID Nutritional Supplement #30 Ref 0 TAB Cholecalciferol (Vitamin D3) 2,000 Unit Cap 2000 UNITS PO DAILY Nutritional Supplement #56 Ref 0 CAP Ergocalciferol (Ergocalciferol) 50,000 Unit Cap 50344 UNITS PO Q7D Nutritional Supplement #56 CAP Hydrocodone-Acetaminophen (Junior) 7.5-325 mg Tab 1 TAB PO Q4H PRN PAIN #60 Ref 0 TAB Rivaroxaban (Xarelto) 10 Mg Tab 10 MG PO DAILY Blood Clot Prevention #21 Ref 0 TAB Walker/Adult/Folding (Walker/Adult/Folding) 1 Mis Mis 1 EA .ROUTE DIRECTED #1 Ref 0 EA Continued Medications: Amlodipine (Amlodipine) 10 Mg Tab 10 MG PO DAILY Blood Pressure Management Ref 0 TAB Hydralazine (Hydralazine) 50 Mg Tab 50 MG PO BID Take with a meal Blood Pressure Management Ref 0 TAB Losartan (Losartan) 100 Mg Tab 100 MG PO DAILY Blood Pressure Management Ref 0 TAB Metoprolol Tartrate (Metoprolol Tartrate) 100 Mg Tab 100 MG PO DAILY Ref 0 TAB Hunt-3 Fatty Acids (Fish Oil) 1,000 Mg Cap 1000 MG PO DAILY Discontinued Medications: Aspirin DR (Aspirin 81) 81 Mg Tabdr 81 MG PO DAILY Ref 0 TAB Celecoxib (Celebrex) 200 Mg Cap 200 MG PO DAILY Pain Management Ref 0 CAP Coral Lockwood Dec 24, 2016 15:11
[2017-01-05] MEDS ORDERED: OYST250T4 PO (09:21)
[2017-01-05] MEDS ORDERED: DRIS50002 PO (09:21)
[2017-01-05] MEDS ORDERED: AMLO5 PO (09:21)
[2017-01-05] MEDS ORDERED: TAMS5CAP PO (09:21)
[2017-01-05] MEDS ORDERED: FAMO20TA2 PO (09:21)
[2017-01-05] MEDS ORDERED: CLON.1 PO (09:21)
[2017-01-05] MEDS ORDERED: XARE10TA PO (09:21)
[2017-01-05] MEDS ORDERED: VITA2000 PO (09:21)
[2017-01-05] MEDS ORDERED: THERTAB15 PO (09:21)
[2017-01-05] MEDS ORDERED: VITA100T2 PO (09:21)
[2017-01-05] MEDS ORDERED: HYDR-3580 PO (09:43)
[2017-01-05] MEDS ORDERED: METO-338 PO (10:30)
[2017-01-05] MEDS ORDERED: COZA50TA PO (10:30)
== END 2016-12-24 12:44 | DRG 470 ==
LOC: NEPE 14:51 → NEDA 16:28 → N06B 20:26 → N06A 12-23 04:16
PROVIDERS: ADMIT Specialist; ATTEND Specialist
PROC: 3E0T3CZ (ICD-10-PCS; 2016-12-22)
PROC: 0SRR0JA Replacement of Right Hip Joint, Femoral Surface with Synthetic Substitute, Uncemented, Open Approach (ICD-10-PCS; principal; 2016-12-22 15:49)
DX: S72.001A Fracture of unspecified part of neck of right femur, initial encounter for closed fracture (principal); E87.1 Hypo-osmolality and hyponatremia; R00.1 Bradycardia, unspecified; D62 Acute posthemorrhagic anemia; I10 Essential (primary) hypertension; E55.9 Vitamin D deficiency, unspecified; F10.20 Alcohol dependence, uncomplicated; F17.220 Nicotine dependence, chewing tobacco, uncomplicated; W01.0XXA Fall on same level from slipping, tripping and stumbling without subsequent striking against object, initial encounter; I25.10 Atherosclerotic heart disease of native coronary artery without angina pectoris; R26.9 Unspecified abnormalities of gait and mobility; G25.0 Essential tremor; Z85.46 Personal history of malignant neoplasm of prostate
CPT/HCPCS: 71010; 73501; 73502; 80048; 80053; 81001; 82306; 85025; 85610; 85730; 86850; 86900; 86901; 93005; 99285; C1776; J0690; J1580; J1650; J2270; J2405; J2710; J3010; J3370; J3411; J7030; L1830